=== PATIENT | female | born 1940 | race Caucasian/White ===

== ENCOUNTER 2020-10-22 15:11 | Emergency (ER) | payer OTHER ==
[2020-10-22 15:32] VITALS: PULSE 74; TEMP 98.1; BMI 25.8
[2020-10-22] MEDS ORDERED: ACETAMINOPHEN 325 MG TABLET (FP) PO ONE (17:06)
[2020-10-22] MEDS ORDERED: morphine CARPU-JECT 4 MG/1 ML DISP.SYRIN IVPUSH ONE (17:11)
[2020-10-22] MEDS ORDERED: DIPHTH,PERTUSS(ACELL),TET 0.5 ML DISP.SYRIN IM ONE ×2 (17:17→17:30)
[2020-10-22] MEDS ORDERED: morphine SULFATE 4 MG/ML VIAL ONE (17:24)
[2020-10-22] MEDS ORDERED: ACETAMINOPHEN 500 MG TABLET (FP) ONE (17:29)
[2020-10-22] MEDS ORDERED: KETOROLAC TROMETHAMINE 30 MG/1 ML VIAL IVPUSH ONE (18:49)
[2020-10-22] MEDS ORDERED: KETOROLAC TROMETHAMINE 30 MG/1 ML VIAL ONE (18:53)
[2020-10-22 20:49] VITALS: BP 126/74
== END 2020-10-22 20:48 | disposition home or self-care (01) ==
LOC: JER 15:11
PROC: 3E0234Z Introduction of Serum, Toxoid and Vaccine into Muscle, Percutaneous Approach (ICD-10-PCS; principal; 2020-10-22)
PROC: 3E033NZ Introduction of Analgesics, Hypnotics, Sedatives into Peripheral Vein, Percutaneous Approach (ICD-10-PCS; 2020-10-22)
PROC: 3E033GC Introduction of Other Therapeutic Substance into Peripheral Vein, Percutaneous Approach (ICD-10-PCS; 2020-10-22)
DX: S42.211A Unspecified displaced fracture of surgical neck of right humerus, initial encounter for closed fracture (principal)
CPT/HCPCS: 73030-TC-RT-FY; 73070-TC-RT-FY; 73130-TC-RT-FY; 90715; 99285-25